=== PATIENT | male | born 1975 | race Caucasian/White ===

== ENCOUNTER 2020-04-13 | Outpatient (CLI) | payer OTHER, SELFPAY ==
--- NOTE | 2020-04-13 07:42 | US_ITS ---
WS: [id number] Complete ABDOMINAL ULTRASOUND HISTORY: EPIGASTRIC PAIN COMPARISON: None available. Liver: 20.5 cm in length. Liver is moderately enlarged and incompletely visualized due to marked hepa tic steatosis. Attenuation of ultrasound causing obscuration of some locations of the liver. No mass identified. Gallbladder: Normally distended with no gallstones, wall thickening or pericholecystic fluid. Gallbladder wall thickness: 0.2 cm. Pancreas: Pancreas is poorly visualized. CBD: 0.3 cm. Right kidney: 10.4 cm x 5.9 cm x 5.5 cm. No mass, cortical thickening or hydronephrosis. Left kidney: 11.4 cm x 5.4 cm x 5.8 cm. No mass, cortical thickening or hydronephrosis. Spleen: Normal size and echogenicity. Abdominal aorta and IVC are within normal limits. No ascites. US/US abdomen complete* [id number] IMPRESSION: 1. Moderate hepatomegaly and hepatic steatosis. The entire liver is not well v isualized due to attenuation from liver disease. 2. Normal gallbladder.
== END 2020-04-13 23:00 | disposition home or self-care (01) ==
LOC: RAD 05-15 08:51
PROVIDERS: Family Provider Family Medicine; PCP Family Medicine; Visit Provider Nurse Practitioner Family
DX: R10.13 Epigastric pain (principal); R16.0 Hepatomegaly, not elsewhere classified; K76.0 Fatty (change of) liver, not elsewhere classified
CPT/HCPCS: 76700

== ENCOUNTER 2020-04-27 13:09 | Outpatient (CLI) | payer OTHER, SELFPAY ==
--- NOTE | 2020-04-27 13:57 | CT_ITS ---
WS: [id number] CT ABDOMEN CONTRAST TECHNIQUE: Contrast enhanced CT of the abdomen with coronal and sagittal reformatted images. CLINICAL INFORMATION: EPIGASTRIC PAIN COMPARISON: Ultrasound April 13, 2020 DLP: 879.[address] scans at [facility] use at least one of these dose optimization techniques: automat ed exposure control; mA and/or kV adjustment per patient size (includes targeted exams where dose is matched to clinical indication); or iterative reconstruction. FINDINGS: Hepatomegaly diffuse fatty infiltration. Normal spleen. Gallbladder is normal. Normal GE junction. Holly ng bases are well aerated. Calcific granuloma left lower lobe. Small esophageal hiatal hernia. Mild f atty atrophy of the pancreas. Small low-attenuation lesion right hepatic lobe likely hepatic cyst or hemangioma. Adrenal glands are normal. Normal renal parenchymal enhancement. No hydronephrosis. Normal caliber ab dominal aorta. No upper abdominal or periaortic lymphadenopathy. Tiny fat-containing umbilical hernia . CT/CT abdomen w con* [id number] IMPRESSION: 1. Hepatomegaly with diffuse fatty infiltration. 2. Tiny low-attenuation lesion right hepatic lobe likely hepatic cyst or heman gioma. 3. Normal gallbladder. 4. No abdominal lymphadenopathy. 5. Small esophageal hiatal hernia. 6. Normal renal parenchymal mass. No hydronephrosis. 7. Tiny fat-containing umbilical hernia.
[2020-04-27] MEDS: iohexol 300 mg/mL 50 mL Btl PO (14:03)
[2020-04-27] MEDS: iohexol 300 mg/mL 100 mL Btl IV (14:14)
== END 2020-04-27 13:10 | disposition home or self-care (01) ==
LOC: RADWPI 13:14
PROVIDERS: Family Provider Family Medicine; PCP Family Medicine; Visit Provider Nurse Practitioner Family
DX: R10.13 Epigastric pain (principal); R16.0 Hepatomegaly, not elsewhere classified; K76.0 Fatty (change of) liver, not elsewhere classified; K44.9 Diaphragmatic hernia without obstruction or gangrene; K42.9 Umbilical hernia without obstruction or gangrene
CPT/HCPCS: 74160; Q9967

== ENCOUNTER 2020-05-16 08:37 | Outpatient (CLI) | payer OTHER, SELFPAY ==
--- NOTE | 2020-05-16 08:43 | NM_ITS ---
WS: [id number] NUCLEAR MEDICINE HIDA SCAN CLINICAL INFORMATION: GENERALIZED ABDOMINAL PAIN TECHNIQUE: Following intravenous administration of 8.2 mCi of technetium 99m mebrofenin, images of th e abdomen were obtained over the course of 60 minutes. Next, gallbladder ejection fraction was determ ined by obtaining preprandial and one-hour postprandial images of the gallbladder following oral larisa stion of Ensure. COMPARISON: Ultrasound April 13, 2020 FINDINGS: Normal hepatic uptake at 5 minutes. Gallbladder is visualized by 10 minutes. Normal common bile duct. Normal small bowel activity. No evidence of acute cholecystitis. No evidence of choledocholithiasis. Gallbladder ejection fraction 49% within normal limits. No evidence of chronic cholecystitis. NM/NM hepatobiliary w phar* [id number] IMPRESSION: 1. No evidence of acute or chronic cholecystitis. 2. Gallbladder ejection fraction 49% within normal limits.
== END 2020-05-16 08:38 | disposition home or self-care (01) ==
LOC: NM 08:40
PROVIDERS: PCP Family Medicine; Visit Provider Nurse Practitioner Family
DX: R10.84 Generalized abdominal pain (principal)
CPT/HCPCS: 78227; A9537

== ENCOUNTER 2020-05-24 08:38 | Day surgery (SDC) | payer OTHER, SELFPAY ==
[2020-05-23 14:41] VITALS: BMI 40.1
[2020-05-24] VITALS (15 sets, daily range): BP systolic 86–162; BP diastolic 48–88; PULSE 87–96; RESP 16–24; TEMP 36.1–36.9; O2SAT 92–99
[2020-05-24] MEDS: sodium chloride 0.9% 1,000 ML 30 ML IV (09:09)
--- NOTE | 2020-05-24 09:22 | ANES.PREANE2 ---
Pre-Anesthetic Assessment Pre-Anesthetic Assessment: Height/Weight: Height 1.83 m Weight 134.263 kg Temp Pulse Resp BP Pulse Ox 98.4 F 96 18 162/88 99 05/24/20 08:56 05/24/20 08:56 05/24/20 08:56 05/24/20 08:56 05/24/20 08:56 Preop Diagnosis: Chronic cholecystitis, epigastric pain Proposed Procedure: Operation Date: 05/24/20 09:45 Proposed Procedures p Laparoscopic Cholecystectomy 96187 K82.9(Not Applicable) - Jewel Douglass MD Familial anesthetic complications: None Was Beta Namita taken within 24 hours: N/A Last intake: Intake Last Liquid Date 05/23/20 Last Liquid Time 22:00 Last Solid Date 05/23/20 Last Solid Time 18:00 Social: Social History: No alcohol and No tobacco Exam: Pre-Anes Outpt Exam: alert, oriented x 3, clear to auscultation bilaterally and regular rate & rhythm Airway: Cervical ROM: WNL MP: 4 Dentition: Full Additional comments: large neck cricumference CV/HEM: CV/HEM: HTN GI: GI: GERD Metabolic: Metabolic: Morbid obesity Neuropsych: Neuropsych: None reported Anesthetic Plan: ASA status: 2 Anesthesia: General Risk of > 500 ml blood loss (7ml/kg in children): No Meds/Allergies Current Medications: Current Medications Generic Name Dose Route Start Last Admin Trade Name Freq PRN Reason Stop Dose Admin Sodium Chloride 1,000 mls @ 30 ml s/hr 05/24/20 09:00 05/24/20 09:09 Sodium Chloride 0.9% IV 05/25/20 08:59 30 mls/hr .Q24H KIRA Administration PFSH Anesthesia PFSH: Medical History Hiatal hernia Hypertension Surgical History History of left knee surgery Social History Smoking and tobacco status: never smoked Alcohol intake: never Lives independently: Yes Household members: significant other Marital status: Single Current occupational status: employed History of recent travel: No Data Anesthesia Cardiac Studies: No Data to Display
--- NOTE | 2020-05-24 09:30 | W.PM.OPSUD ---
Surgery/Procedure H&P Update DATE OF PROCEDURE: May 24, 2020 DATE H&P PERFORMED: 05/23/20 H&P UPDATE INFORMATION: I have reviewed H&P completed within last 30 days, I have examined patient prior to procedure and No changes to prior documentation PREOP DIAGNOSIS: Chronic cholecystitis, epigastric pain PLANNED PROCEDURE: Operation Date: 05/24/20 09:45 Proposed Procedures p Laparoscopic Cholecystectomy 40850 K82.9(Not Applicable) - Jewel Douglass MD
--- NOTE | 2020-05-24 10:55 | P.OP_ITS ---
Operative Report Date of procedure: May 24, 2020 Pre-op Diagnosis: Chronic cholecystitis, epigastric pain/left upper quadrant pain Post-op Diagnosis: Grade A esophagitis Chronic cholecystitis Procedure Done: Esophagogastroduodenoscopy without biopsy Laparoscopic cholecystectomy Pathology: Gallbladder Surgeon: Jewel Douglass Anesthesia: General Condition: stable Disposition: PACU Procedure: The patient was taken to the operating room and was intubated under general anesthesia. A bite-block was placed and the gastroscope was introduced and advanced up to second portion of the duodenum and slowly withdrawn. The fi rst and second portion of the duodenum was normal. The antrum, fundus, body and pylorus of the stomach was normal. There is no hiatal hernia seen on retroflexion. Z line was at 40 cm and there was grade A esophagitis noted. The gastroscope was withdrawn. After the antibiotic had been administered, the abdomen was prepped and draped in a sterile manner. Using a #15 blade, a 1 centimeter infraumbilical curvilinear incision was made and using an open Christoph technique the peritoneal cavity was entered. A 10 millimeter port was placed and 15 millimeters of pneumoperitoneum was created. A 10 millimeter, 30 degrees scope was then introduced. Three 5 millimeter ports were placed in the epigastric, midclavicular and the anterior axillary line two fingerbreadths below the costal margin on the right side under the direct visualization. Ratcheted forceps were introduced into the lateral most port and was used to retract the fundus of the gallbladder cephalad and using forceps the infundi bulum of the gallbladder was retracted laterally. Using L-hook cautery the peritoneum overlying the Calot's triangle was opened medially and laterally until the cystic duct and the cystic artery were skeletonized. Dissection was carried along the body of the gallbladder and after ensuring critical view of safety, 4 clips applied on the cystic duct and 3 clips applied on the cystic artery and cut leaving, 3 clips on the remaining portion of the duct and 2 clips on the remaining portion of the artery. The rest of the gallbladder was dissected off the liver using L-hook cautery. There was no bleeding or bile leaking noted from the gallbladder fossa and the clips appeared to be in place. An EndoCatch bag was introduced to remove the gallbladder. All the ports were removed under direct visualization and there was no bleeding noted from the port sites. The fascia of the umbilicus was closed using [id number] 0 Vicryl sutures and the subcutaneous tissue was approximated using 3-0 Vicryl sutures. The skin at all four ports were closed using 4-0 Monocryl and Dermabond. A total of 10 millimeters of 0.5% Marcaine was infiltrated around the port sites. The patient was stable throughout the procedure.
--- NOTE | 2020-05-24 11:10 | SUR.PHASEI ---
1107 PATIENT TO PACU FROM OR. RR EVEN AND UNLABORED. SPO2 93% ON SIMPLE MASK AT 8L. 4 INCISIONS TO ABDOMEN, CDI. PATIENT DENIES PAIN.
--- NOTE | 2020-05-24 11:19 | SUR.PHASEI ---
PT ON RA TRIAL PT AWAKE ALERT HOB AT 45 DEGREES PT NOW COMPLAINS OF PAIN OF 9 SEE MED GIVEN
[2020-05-24] MEDS: fentaNYL 50 mcg/mL INJ 2mL IVP (11:22)
[2020-05-24] MEDS: morphine 4 mg/mL SDV 1 mL 2 MG IVP ×2 (11:31→11:38)
[2020-05-24] MEDS: HYDROcodone-acetaminophen 5-325 mg Tablet 1 TAB PO (12:37)
--- NOTE | 2020-05-24 13:30 | ANE.PACU2 ---
Inpatient post-anesthesia follow up: Airway intact: Yes Vital signs: Temperature 97.9 F Pulse Rate 94 Respiratory Rate 20 Blood Pressure 95/64 Pulse Oximetry 94 Oxygen Delivery Me thod Nasal Cannula Oxygen Flow Rate 3 Fraction of Inspir ed Oxygen Hydration adequate: Yes Nausea and vomiting: No Pain level: 3 Mental status: Baseline
== END 2020-05-24 13:27 | disposition home or self-care (01) ==
PROVIDERS: PCP Family Medicine; Visit Provider Surgery
PROC: 0FT44ZZ Resection of Gallbladder, Percutaneous Endoscopic Approach (ICD-10-PCS; CPT 47562; principal; 2020-05-24 09:45)
PROC: 0DJ08ZZ Inspection of Upper Intestinal Tract, Via Natural or Artificial Opening Endoscopic (ICD-10-PCS; CPT 43235; 2020-05-24 09:45)
DX: K81.1 Chronic cholecystitis (principal); K21.0 Gastro-esophageal reflux disease with esophagitis; I10 Essential (primary) hypertension; E66.01 Morbid (severe) obesity due to excess calories
CPT/HCPCS: 43235; 47562; 12345; 88304; 96365; J0690; J1100; J2270; J2405; J2704; J3010; J3490; J3535; J7030

== ENCOUNTER → 2021-05-11 11:01 | Outpatient (BNVA) | payer OTHER, SELFPAY | PROVIDERS: PCP Family Medicine; Visit Provider Registered Nurse Neonatal Intensive Care | DX: M79.672 Pain in left foot (principal) | CPT/HCPCS: 73630 ==

== ENCOUNTER → 2021-05-16 12:14 | Outpatient (BNVA) | payer OTHER, SELFPAY | PROVIDERS: PCP Family Medicine; Visit Provider Registered Nurse Neonatal Intensive Care | DX: Z20.822 Contact with and (suspected) exposure to COVID-19 (principal) | CPT/HCPCS: 87635 ==

== ENCOUNTER → 2021-07-18 10:30 | Outpatient (BNVA) | payer OTHER, SELFPAY | PROVIDERS: PCP Family Medicine; Visit Provider Specialist | DX: M25.511 Pain in right shoulder (principal); M19.011 Primary osteoarthritis, right shoulder | CPT/HCPCS: 73030 ==

== ENCOUNTER 2021-07-18 15:22 | Outpatient (CLI) | payer OTHER, SELFPAY | END 2021-07-18 15:23 | disposition home or self-care (01) | LOC: SPT 15:23 | PROVIDERS: PCP Family Medicine; Visit Provider Specialist | DX: Z46.89 Encounter for fitting and adjustment of other specified devices (principal); S49.90XA Unspecified injury of shoulder and upper arm, unspecified arm, initial encounter; X58.XXXA Exposure to other specified factors, initial encounter | CPT/HCPCS: L3670 ==

== ENCOUNTER → 2021-08-02 08:23 | Outpatient (BNVA) | payer OTHER, SELFPAY | PROVIDERS: PCP Family Medicine; Visit Provider Specialist | DX: S49.90XA Unspecified injury of shoulder and upper arm, unspecified arm, initial encounter (principal); Z20.822 Contact with and (suspected) exposure to COVID-19; X58.XXXA Exposure to other specified factors, initial encounter | CPT/HCPCS: 87635 ==

== ENCOUNTER 2021-08-03 15:49 | Outpatient (CLI) | payer OTHER, SELFPAY ==
--- NOTE | 2021-08-03 16:00 | MR_ITS ---
WS: [id number] MRI RIGHT SHOULDER NONCONTRAST TECHNIQUE: Sagittal T2, coronal T1, T2 and proton density imaging. Axial gradient PDE imaging. Patien t unable to complete study due to pain. CLINICAL INFORMATION: S49.90XA - Unspecified injury of shoulder and upper arm, ... COMPARISON: None. FINDINGS: Moderate degenerative arthritis AC joint with hypertrophic spurring. Small amount of edema. Minimal d ownsloping of the acromion. Small amount of subacromial/subdeltoid fluid. Tiny tear of the supraspina tus insertion. Otherwise normal supraspinatus. Normal infraspinatus. Normal teres minor and distal vick bscapularis tendon. Normal biceps tendon in the bicipital groove. Normal biceps labral anchor. Normal intra-articular biceps tendon. Glenoid labrum appears grossly normal. MR/MR shoulder RT wo con* [id number] IMPRESSION: 1. Moderate degenerative arthritis AC joint with edema and a small amount of s ubacromial/subdeltoid fluid. Slight subacromial spurring. 2. Tiny tear at the supraspinatus insertion. 3. Rotator cuff is otherwise normal. 4. Normal biceps tendon in the bicipital groove.
== END 2021-08-03 15:50 | disposition home or self-care (01) ==
LOC: RADSHAW 15:55
PROVIDERS: PCP Family Medicine; Visit Provider Specialist
DX: S49.90XA Unspecified injury of shoulder and upper arm, unspecified arm, initial encounter (principal); M75.100 Unspecified rotator cuff tear or rupture of unspecified shoulder, not specified as traumatic; X58.XXXA Exposure to other specified factors, initial encounter; M19.011 Primary osteoarthritis, right shoulder
CPT/HCPCS: 73221

== ENCOUNTER 2021-09-11 12:57 | Outpatient (CLI) | payer OTHER, SELFPAY ==
--- NOTE | 2021-09-11 13:02 | MR_ITS ---
WS: [id number] Exam: MR shoulder RT wo/w con [id number] Date/Time of Exam: 09/11/2021 1:04 PM Reason For Exam: UNSPECIFIED INJURY OF MUSCLE/TENDON Shoulder is evaluated in the axial, coronal and sagittal planes with multiple imaging sequences. Intr a-articular gadolinium was administered for the exam. There is a tear of the supraspinatus tendon with extravasation of contrast in the subacromial subdelt oid bursa consistent with full thickness tear. The remaining tendons of the rotator cuff are intact. No labral tear is identified. The long head biceps tendon is seated in the bicipital groove. There is arthrosis at the AC joint. The osseous structures demonstrate normal bone marrow signal. MR/MR shoulder RT wo/w con [id number] IMPRESSION: 1. Tear of the supraspinatus tendon with extravasation of contrast into the sub acromial subdeltoid bursa consistent with full thickness tear of the rotator cu ff. The remaining tendons appear to be intact. 2. No sign of labral tear. Unremarkable biceps tendon. Arthrosis at the AC join t.
--- NOTE | 2021-09-11 13:45 | IR_ITS ---
WS: [id number] Exam: IR arthrogram shoulderRT [id number] Date/Time of Exam: 09/11/2021 1:06 PM Reason For Exam: S46.009A - Unspecified injury of muscle(s) and tendon(s) ... The procedure and potential complications explained to the patient in detail. Written consent was obt ained. The anterior right shoulder was prepped and draped in sterile fashion. The soft tissues were anesthet ized with several cc of 1% Xylocaine. Using fluoroscopic visualization a 22-gauge spinal needle was p laced into the glenohumeral joint. Several cc of radiographic contrast were injected to confirm needl e position in the joint compartment. Approximately 12 cc of a mixture of gadolinium in sterile saline were injected into the glenohumeral joint. The patient tolerated the injection procedure without inc ident.
[2021-09-11] MEDS: iohexol 240 mg/mL 50 mL Btl INTRA-ARTI (14:06)
== END 2021-09-11 12:58 | disposition home or self-care (01) ==
PROVIDERS: PCP Family Medicine; Visit Provider Specialist
DX: S46.001A Unspecified injury of muscle(s) and tendon(s) of the rotator cuff of right shoulder, initial encounter (principal); S49.91XA Unspecified injury of right shoulder and upper arm, initial encounter; X58.XXXA Exposure to other specified factors, initial encounter; M75.101 Unspecified rotator cuff tear or rupture of right shoulder, not specified as traumatic
CPT/HCPCS: 23350; 73223; 77002; A9577; Q9966

== ENCOUNTER → 2021-09-24 08:31 | Outpatient (BNVA) | payer OTHER, SELFPAY | PROVIDERS: PCP Family Medicine; Visit Provider Family Medicine | DX: Z20.822 Contact with and (suspected) exposure to COVID-19 (principal); J34.89 Other specified disorders of nose and nasal sinuses; R05.9 Cough, unspecified; J18.9 Pneumonia, unspecified organism | CPT/HCPCS: 87400; 87635; 87801 ==

== ENCOUNTER → 2021-10-08 17:16 | Outpatient (BNVA) | payer OTHER, SELFPAY | PROVIDERS: PCP Family Medicine; Visit Provider Specialist | DX: Z01.818 Encounter for other preprocedural examination (principal) | CPT/HCPCS: 87635 ==

== ENCOUNTER 2021-10-12 06:04 | Day surgery (SDC) | payer OTHER, SELFPAY ==
[2021-10-11 12:48] VITALS: BMI 40.6
[2021-10-12] VITALS (11 sets, daily range): BP systolic 131–165; BP diastolic 72–115; PULSE 81–96; RESP 19–32; TEMP 36.3–36.8; O2SAT 90–97
[2021-10-12 06:43] LABS: Add Urine Microscopic? NO; Charge for UA Resulting for Rev
[2021-10-12 06:54] LABS: Basophils # 0.1 10^3/uL (0.0-0.1); Basophils % 0.6 %; Eosinophils # 0.2 10^3/uL (0.0-0.8); Eosinophils % 2.1 %; Hematocrit 53.4 % (42.0-52.0); Hemoglobin 18.1 g/dL (11.7-16.6); Lymphocytes # 2.1 10^3/uL (0.8-4.8); Lymphocytes % 24.2 %; Mean Corpuscular HGB Conc 33.9 g/dL (30.0-36.0); Mean Corpuscular Hemoglobin 31.1 pg (28.0-34.0); Mean Corpuscular Volume 91.8 fl (80-94); Mean Platelet Volume 10.1 fL (7.4-10.4); Monocytes # 0.8 10^3/uL (0.2-0.9); Neutrophils # 5.37 10^3/uL (1.8-7.7); Neutrophils % 63.4 %; Nucleated Red Blood Cells % 0 %; Platelet Count 339 10^3/cmm (130-400); Red Blood Count 5.82 10^6/uL (4.1-5.3); Red Cell Distribution Width 14.3 % (12.1-15.1); White Blood Count 8.5 10^3/uL (4.0-10.0)
--- NOTE | 2021-10-12 06:57 | P.HPUD_ITS ---
Surgery/Procedure H&P Update DATE OF PROCEDURE: October 12, 2021 DATE H&P PERFORMED: 09/17/21 H&P UPDATE INFORMATION: I have reviewed H&P completed within last 30 days, I have examined patient prior to procedure, No changes to prior documentation and H&P is in [facility] EMR on date indicated PREOP DIAGNOSIS: Right rotator cuff tear with AC joint DJD and impingement PLANNED PROCEDURE: Operation Date: 10/12/21 07:00 Proposed Procedures p Rotator Cuff Repair [id number] M75.100(Right) - Genoveva Reeves MD s Acromioplasty(Right) - Genoveva Reeves MD s Distal Clavicle Resection(Right) - Genoveva Reeves MD Related Problem List Diagnoses (1) Impingement syndrome of right shoulder: (2) Rotator cuff injury: Qualifiers: Encounter type: subsequent encounter Laterality: right Qualified Code(s): S46.001D - Unspecified injury of muscle(s) and tendon(s) of the rotator cuff of right shoulder, subsequent encounter (3) DJD of right AC (acromioclavicular) joint:
[2021-10-12] MEDS: acetaminophen 1,000 MG/100 ML PIGGYBACK 400 MG IV (07:00)
--- NOTE | 2021-10-12 07:10 | XR_ITS ---
WS: [id number] Exam: XR chest 1V portable [id number] Date/Time of Exam: 10/12/2021 7:18 AM Reason For Exam: pre op change Comparison 08/06/2007. The lungs are fully expanded and clear. No pleural effusions. Cardiomediastinal structures are unrema rkable for technique. Regional bony elements are intact. EKG leads superimpose the chest. XR/XR chest 1V portable [id number] IMPRESSION: 1. No acute cardiopulmonary finding.
[2021-10-12 07:19] LABS: Alanine Aminotransferase 59 U/L (0-41); Albumin Level 4.7 g/dL (3.5-5.2); Alkaline Phosphatase 99 IU/L (40-130); Anion Gap 17.6 (5-19); Aspartate Amino Transferase 25 U/L (0-40); Blood Urea Nitrogen 11 mg/dL (6-20); Calcium 8.9 mg/dL (8.5-10.5); Carbon Dioxide 25 mmol/L (22-29); Chloride 101 mmol/L (98-107); Globulin 2.8 g/dL (1.3-4.6); Glomerular Filtration Rate 121.4 mL/min (90-130); Glucose 141 mg/dL (65-115); Osmolality Calculated 292 mOsm/kg (285-295); Potassium 3.6 mmol/L (3.5-5.1); Sodium 140 mmol/L (136-145); Total Bilirubin 0.7 mg/dL (0.15-1.2); Total Protein 7.5 g/dL (6.6-8.7)
[2021-10-12 07:19] LABS: Bilirubin Urine Neg (Negative); Blood Urine Neg (Negative); Glucose Urine UA Norm (Normal); Ketones Urine Negative (Negative); Leukocyte Esterase Urine Negative (Negative); Nitrate Urine Negative (Negative); Protein Urine Neg (Negative); Urine Appearance Clear (CLEAR); Urine Color Yellow (Yellow); Urobilinogen Urine Norm (Negative); pH Urine 5 (5-7)
[2021-10-12] MEDS: CELEcoxib 200 mg Capsule 400 MG PO (07:19)
[2021-10-12] MEDS: sodium chloride 0.9% 1,000 ML 30 ML IV (07:24)
--- NOTE | 2021-10-12 07:29 | P.ANESASSM_ITS ---
Pre-Anesthetic Assessment Pre-Anesthetic Assessment: Height/Weight: Height 1.83 m Weight 136.078 kg Temp Pulse Resp BP Pulse Ox 98.2 F 92 20 H 165/115 97 10/12/21 06:27 10/12/21 06:27 10/12/21 06:27 10/12/21 06:27 10/12/21 06:27 Preop Diagnosis: Right rotator cuff tear with AC joint DJD and impingement Proposed Procedure: Operation Date: 10/12/21 07:00 Proposed Procedures p Rotator Cuff Repair 29836 M75.100(Right) - Genoveva Reeves MD s Acromioplasty(Right) - Genoveva Reeves MD s Distal Clavicle Resection(Right) - Genoveva Reeves MD Familial anesthetic complications: Difficult intubation - glidescope used X 2 Was Beta Namita taken within 24 hours: N/A Was Clonidine taken within 24 hours: N/A Last intake: Intake Last Liquid Date 10/11/21 Last Liquid Time 22:30 Last Solid Date 10/11/21 Last Solid Time 19:00 Social: Social History: No alcohol and No tobacco Exam: Pre-Anes Outpt Exam: alert, oriented x 3, clear to auscultation bilaterally and regular rate & rhythm Airway: Cervical ROM: WNL MP: 4 Dentition: Full Pulmonary: Comments: Pneumonia several weeks ago - states back to baseline, lungs CTA CV/HEM: CV/HEM: HTN GI: GI: GERD Metabolic: Metabolic: Morbid obesity Anesthetic Plan: ASA status: 3 Anesthesia: General and Regional (specify below) Risk of > 500 ml blood loss (7ml/kg in children): No Medications/Allergies Current Medications: Current Medications Generic Name Dose Route Start Last Admin Trade Name Freq PRN Reason Stop Dose Admin Sodium Chloride 1,000 mls @ 30 ml s/hr 10/12/21 06:15 10/12/21 07:24 Sodium Chloride 0.9% IV 10/13/21 06:14 30 mls/hr .Q24H KIRA Administration PFSH Anesthesia PFSH: Medical History (Updated 09/24/21 @ 12:55 by Rafat Stuart DO) Hiatal hernia Hypertension Surgical History H/O esophagogastroduodenoscopy (05/24/20) History of left knee surgery Status post laparoscopic cholecystectomy (05/24/20) Social History Smoking and tobacco status: never smoked Alcohol intake: never Lives independently: Yes Household members: significant other Marital status: Single Current occupational status: employed History of recent travel: No Data Anesthesia CBC & Chem 7: 10/12/21 06:48 10/12/21 06:48 Other Labs: Laboratory Results - last 48 hr 10/12/21 10/12/21 10/12/21 06:39 06:48 06:48 WBC 8.5 RBC 5.82 H Hgb 18.1 H Hct 53.4 H MCV 91.8 MCH 31.1 MCHC 33.9 RDW 14.3 Plt Count 339 MPV 10.1 Neut % (Auto) 63.4 Lymph % (Auto) 24.2 Union % (Auto) 9.0 Eos % (Auto) 2.1 Baso % (Auto) 0.6 Neut # (Auto) 5.37 Lymph # (Auto) 2.1 Union # (Auto) 0.8 Eos # (Auto) 0.2 Baso # (Auto) 0.1 Nucleated RBC % (auto) 0 Nucleated RBCs # 0.0 Sodium 140 Potassium 3.6 Chloride 101 Carbon Dioxide 25 Anion Gap 17.6 BUN 11 Creatinine 0.7 GFR Calculation 121.4 Glucose 141 H Calculated Osmolality 292 Calcium 8.9 Total Bilirubin 0.7 AST 25 ALT 59 H Alkaline Phosphatase 99 Total Protein 7.5 Albumin 4.7 Globulin 2.8 Urine Color Yellow Urine Appearance Clear Urine pH 5 Ur Specific Galt 1.020 Urine Protein Neg Urine Glucose (UA) Norm Urine Ketones Negative Urine Blood Neg Urine Nitrate Negative Urine Bilirubin Neg Urine Urobilinogen Norm Ur Leukocyte Esterase Negative Cardiac Studies: No Data to Display
--- NOTE | 2021-10-12 07:30 | ANES.PROC ---
Anesthesia Procedures Procedure/Date: 10/12/21 Nerve Block ^: Nerve Block 1: Main Anesthesia: general anesthesia Time Out Performed: Yes Consent: requested by attending/covering physician, from patient, risks and benefits reviewed and patient agrees to proceed Nerve block location: interscalene (R) Anesthesia monitors applied: pulse oximetry, EKG, BP cuff and oxygen Anesthetic Used: ropivicaine 0.5% and with decadron (1.5) Amount of anesthesia used (mL): 15 Ultrasound used to: recognize landmarks and visualize and ID interscalene groove Nerve Stimulator Used?: No Interscalene/Femoral BLK: 2 stimuplex 22 g needle used for position and inplane approach, visualize local anesthetic spread and no vascular puncture identified Injection: neg aspiration of heme Complications: none and pain with procedure (patient complained of some pain in shoulder with injection of 1 cc test dose, needle repositioned, no subsequent pain) Additional Comments: Patient stated he felt like he was going to pass out during block. Block stopped. BP down to systolics 90s and HR down to 50s. Patient then had couhging fit, which is improving now. CXR gotten to rule out PTX
[2021-10-12] MEDS: vancomycin 1,000 MG in sodium chloride 0.9% 250 ML 250 MG IV (07:46)
[2021-10-12] MEDS: ceFAZolin 1,000 mg SDV 1000 MG IRRIGATION (08:42)
--- NOTE | 2021-10-12 10:38 | P.OP_ITS ---
Operative Report Date of procedure: October 12, 2021 Pre-op Diagnosis: Right rotator cuff tear with AC joint DJD and impingement Post-op diagnosis: same Post-op Findings: Insertional tear with horizontal and vertical components supraspinatus tendon, severe osteoarthritic changes to the distal clavicle with expansion of the distal clavicle, severe impingement. Procedure Done: Open right rotator cuff repair with distal clavicle resection and acromioplasty Implants: [employer] Healcoil 5.5 mm suture anchor Specimens removed/disposition: Distal clavicle and undersurface of acromion, disposed of Pathology: none sent Surgeon: Genoveva Reeves Recovery Analyst[facility] Anesthesia: General (Intubated, ASA 3 with preoperative interscalene block) Estimated blood loss (mL): 50 IV fluids (mL): 700 Urine output (mL): 0 Urine output: No Watters Complications: None Findings: Complete insertional site rotator cuff tear supraspinatus, small with vertical and horizontal components. Severe impingement and degenerative changes of the acromioclavicular joint. Condition: stable Disposition: PACU (Then return to same-day surgery for discharge to home) Brief History: This 46-year-old gentleman had injury to his shoulder while at work. Initially, he had an MRI which was negative for rotator cuff tear, however, he continued to be symptomatic, and we ordered an MR arthrogram. This study demonstrated an insertional site tear of the supraspinatus which was consistent with findings at the time of OR. He was also noted to have significant impingement and changes within the acromioclavicular joint. The patient was scheduled for the above procedure, and findings were as expected from his MR arthrogram. Procedure: The patient was brought to the operating theater and underwent general intubated, ASA 3 anesthesia with a preoperative regional block. The patient was placed in a beachchair position and subsequently the right upper extremity was prepped and draped in the usual fashion utilizing DuraPrep. The arm was draped free. A surgical pause was performed prior to commencement of the surgical procedure. At the time of the surgical pause, we confirmed the site and side of surgery as well as administration of appropriate preoperative antibiotics vancomycin 1 g. MR arthrogram was also reviewed prior to initiation of the surgical procedure. Following the surgical pause, an incision was made at approximately the level of the acromioclavicular joint extending across the anterolateral corner of the acromion and distally as necessary. Care was taken to avoid injury to the axillary nerve by limiting the distal extent of the incision. Dissection continued through skin and soft tissues using a scalpel. Hemostasis was obtained using electrocautery. The acromioclavicular joint was exposed. A saw was then used to resect the distal clavicle without difficulty. The undersurface of the clavicle was palpated and was slightly further debrided. A power rasp was used to further smooth the area. When this was felt to be adequately resected, the wound was irrigated. Soft tissues were further elevated off the acromion. An acromioplasty was then accomplished using a combination of a saw and a power rasp. With this, we were able to remove compression caused by the acromion. Prior to the acromioplasty, the subacromial space was extremely narrowed. The rotator cuff was then evaluated to look for tears. As anticipated from the MR arthrogram, there was an insertional site tear of the supraspinatus tendon. This had both horizontal and vertical components. The edges were freshened using a scalpel. The reattachment point bony on the humeral head was addressed with a Ronguer to prepare a bed for appropriate repair. Repair was accomplished using the [employer] 5.5 mm suture anchor as well as 0 Ethibond. The tear orientation was noted to be both horizontal and vertical. After the rotator cuff had been thus addressed, the shoulder was placed through further range of motion to assure there was no further evidence of rotator cuff tear. There was no further evidence of rotator cuff tear outside of this repaired area. Attention was then directed to closure. The wound was irrigated and closure was accomplished with 0 Vicryl in the capsular tissues overlying the acromioclavicular joint area as well as over the acromion and down into the deltoid muscle. 2-0 Monocryl was used to close the subcutaneous tissues followed by 4-0 Monocryl subcuticular closure. This was followed by Steri-Strips, Dermabond Prineo, Telfa, and Tegaderm. The patient was placed in a shoulder immobilizer and was returned to the recovery room in satisfactory condition. The patient will be discharged to home to follow-up with me in the office as scheduled. There were no complications and no specimens. Associated Problem List Diagnoses (1) Impingement syndrome of right shoulder: (2) Rotator cuff injury: Qualifiers: Encounter type: subsequent encounter Laterality: right Qualified Code(s): S46.001D - Unspecified injury of muscle(s) and tendon(s) of the rotator cuff of right shoulder, subsequent encounter (3) DJD of right AC (acromioclavicular) joint: (4) Shoulder injury: Qualifiers: Encounter type: subsequent encounter Laterality: right Qualified Code(s): S49.91XD - Unspecified injury of right shoulder and upper arm, subsequent encounter
[2021-10-12] MEDS: oxyCODONE 5 mg IR Tab/Cap PO (12:03)
--- NOTE | 2021-10-12 14:36 | ANE.PACU2 ---
Inpatient post-anesthesia follow up: Airway intact: Yes Vital signs: Temperature 97.3 F Pulse Rate 89 Respiratory Rate 19 Blood Pressure 133/80 Pulse Oximetry 90 Oxygen Delivery Me thod Room Air Oxygen Flow Rate 8 Fraction of Inspir ed Oxygen Hydration adequate: Yes Nausea and vomiting: No Pain level: 1 Mental status: Baseline
== END 2021-10-12 12:45 | disposition home or self-care (01) ==
PROVIDERS: PCP Family Medicine; Visit Provider Specialist
PROC: (CPT 23120; principal; 2021-10-12 07:00)
PROC: (CPT 23130; 2021-10-12 07:00)
PROC: (CPT 23120; 2021-10-12 07:00)
DX: M75.101 Unspecified rotator cuff tear or rupture of right shoulder, not specified as traumatic (principal); M75.41 Impingement syndrome of right shoulder; M19.011 Primary osteoarthritis, right shoulder; I10 Essential (primary) hypertension; K21.9 Gastro-esophageal reflux disease without esophagitis; E66.01 Morbid (severe) obesity due to excess calories; Z68.41 Body mass index [BMI] 40.0-44.9, adult
CPT/HCPCS: 23120; 23420; 36415; 64415; 71045; 76942; 80053; 81003; 85025; 96365; C1713; J0690; J1100; J2370; J2405; J2704; J2710; J2795; J3010; J3370; J3490; J7030; J7050

== ENCOUNTER → 2021-10-29 14:39 | Outpatient (BNVA) | payer OTHER, SELFPAY | PROVIDERS: PCP Family Medicine; Visit Provider Specialist | DX: S46.009A Unspecified injury of muscle(s) and tendon(s) of the rotator cuff of unspecified shoulder, initial encounter (principal); M19.011 Primary osteoarthritis, right shoulder; X58.XXXA Exposure to other specified factors, initial encounter | CPT/HCPCS: 73030 ==

== ENCOUNTER 2021-11-14 06:00 | Outpatient (RCR) | payer OTHER, SELFPAY | END 2021-11-19 23:59 | disposition home or self-care (01) | LOC: SPT 06:00 | PROVIDERS: PCP Family Medicine; Referring Provider Specialist; Visit Provider Specialist | DX: Z47.89 Encounter for other orthopedic aftercare (principal) | CPT/HCPCS: 97110; 97140; 97161 ==

== ENCOUNTER 2021-11-20 06:00 | Outpatient (RCR) | payer OTHER, SELFPAY | END 2021-12-20 23:59 | disposition home or self-care (01) | LOC: SPT 06:00 | PROVIDERS: PCP Family Medicine; Referring Provider Specialist; Visit Provider Specialist | DX: Z47.89 Encounter for other orthopedic aftercare (principal) | CPT/HCPCS: 97110; 97140 ==

== ENCOUNTER 2021-12-21 06:00 | Outpatient (RCR) | payer OTHER, SELFPAY | END 2022-01-19 23:59 | disposition home or self-care (01) | LOC: SPT 06:00 | PROVIDERS: PCP Family Medicine; Referring Provider Specialist; Visit Provider Specialist | DX: Z47.89 Encounter for other orthopedic aftercare (principal) | CPT/HCPCS: 97110 ==

== ENCOUNTER 2022-01-20 | Outpatient (RCR) | payer OTHER, SELFPAY | END 2022-02-19 23:59 | disposition home or self-care (01) | LOC: SPT | PROVIDERS: PCP Family Medicine; Referring Provider Specialist; Visit Provider Specialist | DX: S46.001D Unspecified injury of muscle(s) and tendon(s) of the rotator cuff of right shoulder, subsequent encounter (principal); X58.XXXD Exposure to other specified factors, subsequent encounter | CPT/HCPCS: 97110 ==

== ENCOUNTER → 2022-06-24 09:25 | Outpatient (BNVA) | payer OTHER, SELFPAY | PROVIDERS: PCP Family Medicine; Visit Provider Family Medicine | DX: I10 Essential (primary) hypertension (principal); Z76.89 Persons encountering health services in other specified circumstances; F41.1 Generalized anxiety disorder | CPT/HCPCS: 80053; 80061 ==

== ENCOUNTER → 2022-06-28 07:50 | Outpatient (BNVA) | payer OTHER, SELFPAY | PROVIDERS: PCP Family Medicine; Visit Provider Family Medicine | DX: R73.09 Other abnormal glucose (principal) | CPT/HCPCS: 83036 ==

== ENCOUNTER → 2022-08-13 10:21 | Outpatient (BNVA) | payer OTHER, SELFPAY | PROVIDERS: PCP Family Medicine; Visit Provider Family Medicine | DX: R05.9 Cough, unspecified (principal); J06.9 Acute upper respiratory infection, unspecified | CPT/HCPCS: 87400; 87426 ==

== ENCOUNTER → 2022-12-09 11:38 | Outpatient (BNVA) | payer OTHER, SELFPAY | PROVIDERS: PCP Family Medicine; Visit Provider Family Medicine | DX: H91.90 Unspecified hearing loss, unspecified ear (principal); H93.13 Tinnitus, bilateral; G25.81 Restless legs syndrome; E11.9 Type 2 diabetes mellitus without complications; F41.1 Generalized anxiety disorder; I10 Essential (primary) hypertension | CPT/HCPCS: 80048; 83036 ==

== ENCOUNTER → 2023-06-03 11:06 | Outpatient (BNVA) | payer OTHER, SELFPAY | PROVIDERS: PCP Family Medicine; Visit Provider Family Medicine | DX: I10 Essential (primary) hypertension (principal); E78.2 Mixed hyperlipidemia; E11.9 Type 2 diabetes mellitus without complications; G25.81 Restless legs syndrome | CPT/HCPCS: 80053; 80061; 81000; 82043; 83036; 85025 ==

== ENCOUNTER → 2023-11-17 09:40 | Outpatient (BNVA) | payer OTHER, SELFPAY | PROVIDERS: PCP Family Medicine; Visit Provider Family Medicine | DX: E11.9 Type 2 diabetes mellitus without complications (principal) | CPT/HCPCS: 80053; 80061; 83036 ==

== ENCOUNTER → 2023-12-18 18:10 | Outpatient (BNVA) | payer OTHER, SELFPAY | PROVIDERS: PCP Family Medicine; Visit Provider Registered Nurse Neonatal Intensive Care | DX: S99.922A Unspecified injury of left foot, initial encounter (principal); X58.XXXA Exposure to other specified factors, initial encounter | CPT/HCPCS: 73630 ==

== ENCOUNTER → 2024-01-09 12:36 | Outpatient (BNVA) | payer OTHER, SELFPAY | PROVIDERS: PCP Family Medicine; Visit Provider Podiatrist Foot & Ankle Surgery | DX: E11.69 Type 2 diabetes mellitus with other specified complication; M65.871 Other synovitis and tenosynovitis, right ankle and foot; M21.611 Bunion of right foot; M21.612 Bunion of left foot; M21.41 Flat foot [pes planus] (acquired), right foot; M21.42 Flat foot [pes planus] (acquired), left foot | CPT/HCPCS: 73630; 99203 ==

== ENCOUNTER 2024-04-05 09:15 | Outpatient (CLI) | payer OTHER, SELFPAY | END 2024-04-05 09:16 | disposition home or self-care (01) | LOC: SPT 09:15 | PROVIDERS: PCP Family Medicine; Visit Provider Podiatrist Foot & Ankle Surgery | DX: Z46.89 Encounter for fitting and adjustment of other specified devices (principal); M21.612 Bunion of left foot; M21.611 Bunion of right foot; M21.42 Flat foot [pes planus] (acquired), left foot; M21.41 Flat foot [pes planus] (acquired), right foot; M65.9 Synovitis and tenosynovitis, unspecified; E11.69 Type 2 diabetes mellitus with other specified complication | CPT/HCPCS: L3030 ==

== ENCOUNTER 2024-04-07 06:00 | Outpatient (CLI) | payer OTHER, SELFPAY | END 2024-04-07 06:01 | disposition home or self-care (01) | LOC: RAD 05-30 15:42 | PROVIDERS: PCP Family Medicine; Visit Provider Family Medicine | DX: E55.9 Vitamin D deficiency, unspecified (principal); E78.2 Mixed hyperlipidemia; E11.69 Type 2 diabetes mellitus with other specified complication; L98.8 Other specified disorders of the skin and subcutaneous tissue; I10 Essential (primary) hypertension | CPT/HCPCS: 80053; 80061; 82306; 82533; 82607; 82746; 83036; 83735; 84443; 85025; 85651; 86140 ==

== ENCOUNTER 2025-02-15 14:06 | Outpatient (CLI) | payer OTHER, SELFPAY | END 2025-02-15 14:07 | disposition home or self-care (01) | LOC: SPT 14:07 | PROVIDERS: PCP Family Medicine; Visit Provider Podiatrist Foot & Ankle Surgery | DX: Z46.89 Encounter for fitting and adjustment of other specified devices (principal); M21.41 Flat foot [pes planus] (acquired), right foot; M21.42 Flat foot [pes planus] (acquired), left foot; E11.69 Type 2 diabetes mellitus with other specified complication; M65.90 Unspecified synovitis and tenosynovitis, unspecified site; M21.611 Bunion of right foot; M21.612 Bunion of left foot | CPT/HCPCS: L3030 ==